=== PATIENT | male | born 1945 | race African-American/Black ===

== ENCOUNTER 2020-10-02 06:37 | Emergency (ER) | payer OTHER ==
[~2020-10-02] VITALS: Ht 167.6 cm; Wt 81.2 kg
[2020-10-02] MEDS ORDERED: ZOCOR40 MG (07:12)
[2020-10-02] MEDS ORDERED: CASODEX50 MG (07:12)
[2020-10-02] MEDS ORDERED: NORVASC5 MG (07:13)
[2020-10-02] MEDS ORDERED: AVAPRO300 MG (07:13)
[2020-10-02] MEDS ORDERED: HUMULIN 70100 UNIT/1 (07:13)
[2020-10-02] MEDS ORDERED: METFORMIN HCL1000 M2 (07:13)
== END 2020-10-02 16:40 | disposition home or self-care (01) ==
LOC: ER 06:37
DX: K59.09 Other constipation (principal); R10.84 Generalized abdominal pain; Z03.818 Encounter for observation for suspected exposure to other biological agents ruled out

== ENCOUNTER 2021-01-30 20:27 | Inpatient (IN) | payer OTHER ==
[~2021-01-30] VITALS: Ht 167.6 cm; Wt 68.9 kg
[~2021-01-30 20:27] MED LIST: AVAPRO300 MG; CASODEX50 MG; HUMULIN 70100 UNIT/1; METFORMIN HCL1000 M2; NORVASC5 MG; ZOCOR40 MG
[2021-01-30] MEDS ORDERED: MORPHINE SULFAT30 MG PO (21:00)
[2021-01-30] MEDS ORDERED: PERCOCET 5-3251 EACH (21:01)
[2021-02-04] MEDS ORDERED: AMLODIPINE BESYL5 MG PO (14:44)
[2021-02-04] MEDS ORDERED: Neurin-Sl Tablet Sl SL (14:44)
[2021-02-04] MEDS ORDERED: Lantus 1000 UNITS/10 SUBCUTANEO (14:44)
[2021-02-04] MEDS ORDERED: B Complex CAPSULE PO (14:44)
[2021-02-04] MEDS ORDERED: PROTONIX40 MG PO (14:44)
[2021-02-04] MEDS ORDERED: AMOX-CLAV 875-1 EAC1 PO (14:44)
[2021-02-04] MEDS ORDERED: AVAPRO300 MG PO (14:44)
[2021-02-04] MEDS ORDERED: HYDRODIURIL12.5 MG PO (14:44)
[2021-02-04] MEDS ORDERED: CLEOCIN HCL300 MG PO (14:44)
[2021-02-04] MEDS ORDERED: Lipitor 10MG TABLET PO (14:44)
[2021-02-04] MEDS ORDERED: TAMS0.4C PO (14:44)
[2021-02-04] MEDS ORDERED: INTESTINEX680 M1 PO (14:44)
[2021-02-04] MEDS ORDERED: MEGESTROL400 MG/11 PO (14:44)
== END 2021-02-04 15:43 | disposition home or self-care (01) | DRG 194 ==
LOC: ER 20:27 → MEDJ 01-31 14:40 → SEC-K 01-31 14:40 → MEDJ 01-31 16:59
PROVIDERS: ADMIT Internal Medicine; ATTEND Internal Medicine
PROC: CB2YYZZ Tomographic (Tomo) Nuclear Medicine Imaging of Respiratory System using Other Radionuclide (ICD-10-PCS; principal; 2021-01-31)
PROC: C51DYZZ Planar Nuclear Medicine Imaging of Bilateral Lower Extremity Veins using Other Radionuclide (ICD-10-PCS; 2021-02-03)
DX: J18.8 Other pneumonia, unspecified organism (principal); C78.00 Secondary malignant neoplasm of unspecified lung; C78.7 Secondary malignant neoplasm of liver and intrahepatic bile duct; R09.02 Hypoxemia; R53.1 Weakness; I10 Essential (primary) hypertension; E11.65 Type 2 diabetes mellitus with hyperglycemia; Z79.4 Long term (current) use of insulin; Z20.822 Contact with and (suspected) exposure to COVID-19; C61 Malignant neoplasm of prostate